=== PATIENT | male | born 1945 | race Caucasian/White ===

== ENCOUNTER → 2016-12-24 | Outpatient (CLI) | payer MEDICARE ==
[~2016-12-24] MED LIST: ASPIRIN81 M1; FLOMAX0.4 MG PO; LIPITOR PO; LOTREL 5/20 MG1 CAP PO; MAXZIDE-25MG TA1 TAB; TRIAMTERENE/HCTZ PO; [UNRECOGNIZED DRUG - OTHER] PO
--- NOTE | ~2016-12-24 | US77 ---
[facility] A Service of [facility] RADIOLOGY TEXT RESULTS PATIENT: ADINA RUSSELL LOCATION: [facility] : 43 UNIT #: [id number] AGE: [address]: Max Xavier MD SEX: M ORDER DR: [id number] [facility]. [place], [place] [address] [id number] MR#: [id number] Acc #: [id number] NAME: ADINA RUSSELL : 1945 SEX: M STUDY DATE/TIME: 12/24/2016 12:30 UNIT: [facility] ROOM: STUDY DESCRIPTION: US Kidney Bilateral Complete Attending Physician: Max Xavier M.D. Referring Physician: Max Xavier M.D. Ordering Physician: Max Xavier M.D. Primary Care Physician: Rani Kern Aprn MEDICAL IMAGING REPORT This report is preliminary unless electronic signature is present EXAM Renal ultrasound. DATE OF EXAM 12/24/2016 INDICATION Chronic kidney disease, stage 3. TECHNIQUE Coleman-scale and color Doppler sonographic images were obtained through the kidneys and bladder. FINDINGS Both kidneys are echogenic and demonstrate cortical thinning in keeping with history of chronic medical renal disease. There is some echogenic areas identified within both kidneys which I suspect reflect vascular calcifications, although, the possibility of nonobstructing stone is certainly not excluded. This patient does have a right renal cyst measuring 1.3 x 1.4 x 1.3 cm. No solid renal masses are identified. Patient's prostate gland is noted to be enlarged and heterogeneous and protrudes into the base of bladder. IMPRESSION 1. Bilateral echogenic kidneys with cortical thinning characteristic of chronic medical renal disease. There is some hyperechoic areas within both kidneys which I suspect reflect vascular calcifications, although certainly the presence of some nonobstructing renal stone is certainly not excluded. 2. Left renal cyst. 3. Prostatic enlargement. [facility] A Service of [facility] RADIOLOGY TEXT RESULTS PATIENT: ADINA RUSSELL LOCATION: [facility] : 43 UNIT #: [id number] AGE: [address]: Max Xavier MD SEX: M ORDER DR: Dictated by... Yojana Harris M.D. THIS IS AN ELECTRONICALLY VERIFIED REPORT Yojana Harris M.D. at 12/24/2016 4:18 PM AFF/[email or web address] TD: 12/24/2016 15:44 JOB #: [id number] MEDICAL IMAGING REPORT COPY
== END | disposition home or self-care (01) ==
LOC: CGUS 12:12
DX: N18.3 Chronic kidney disease, stage 3 (moderate) (principal); N28.1 Cyst of kidney, acquired; N40.0 Benign prostatic hyperplasia without lower urinary tract symptoms
CPT/HCPCS: 76770